=== PATIENT | male | born 1965 | race Caucasian/White ===

== ENCOUNTER 2019-01-04 09:33 | Emergency (ER) | payer OTHER ==
[~2019-01-04] VITALS: Ht 182.9 cm; Wt 68.0 kg
[~2019-01-04 09:33] MED LIST: IBUP800 PO; OMEP20ER PO
== END 2019-01-04 10:44 | disposition home or self-care (01) ==
LOC: ER 09:33
DX: H11.32 Conjunctival hemorrhage, left eye (principal); F17.200 Nicotine dependence, unspecified, uncomplicated
CPT/HCPCS: 99282

== ENCOUNTER → 2020-09-15 | Outpatient (CLI) | payer OTHER | END | disposition home or self-care (01) | LOC: LAB 09:43 → LAB SHORT 09:43 | DX: R13.19 Other dysphagia (principal) | CPT/HCPCS: 87338 ==

== ENCOUNTER 2022-10-01 11:41 | Emergency (ER) | payer OTHER ==
[~2022-10-01] VITALS: Ht 182.9 cm; Wt 72.6 kg
[2022-10-01] MEDS ORDERED: Ventolin/Prove6.7 GM INH (12:31)
[2022-10-01 13:24] LABS: BASOPHILS ABSOLUTE AUTO 0.09 K/mm3 (0.00-0.23); BASOPHILS PERCENT AUTO 1 % (0-2); EOSINOPHILS ABSOLUTE AUTO 0.13 K/mm3 (0.00-0.68); EOSINOPHILS PERCENT AUTO 1 % (0-6); Hematocrit 44.8 % (37.0-53.0); Hemoglobin 15.7 g/dL (13.5-17.5); IMMATURE GRAN ABSOLUTE AUTO 0.03 K/mm3 (0.00-0.10); IMMATURE GRAN PERCENT AUTO 0 % (0-1); LYMPHOCYTES ABSOLUTE AUTO 4.11 K/mm3 (0.84-5.20); LYMPHOCYTES PERCENT AUTO 32 % (21-46); MONOCYTES ABSOLUTE AUTO 1.13 K/mm3 (0.16-1.47); MONOCYTES PERCENT AUTO 9 % (4-13); Mean Corpuscular HGB 30.6 pg (26.0-34.0); Mean Corpuscular Volume 87 fL (80-100); Mean Platelet Volume 9.4 fL (9.1-12.4); NEUTROPHILS ABSOLUTE AUTO 7.25 K/mm3 (1.96-9.15); NEUTROPHILS PERCENT AUTO 57 % (41-73); Platelet Count 315 K/mm3 (150-400); RDW Coefficient Variation 13.4 % (11.7-14.2); RDW Standard Deviation 43.3 fL (35.1-46.3); Red Blood Cell Count 5.13 M/mm3 (4.30-5.90); White Blood Cell Count 12.74 K/mm3 (4.00-11.30)
[2022-10-01 13:43] LABS: Albumin, Blood 4.1 g/dL (3.4-5.0); Albumin/Globulin Ratio 1.2 (0.8-1.8); Bilirubin, Total 0.6 mg/dL (0.1-1.0); Bun/Creatinine Ratio 12.6 (12.0-20.0); Calcium, Blood 8.9 mg/dL (8.5-10.1); Creatinine, Blood 0.8 mg/dL (0.60-1.20); Globulin, Blood 3.4 g/dL (2.2-4.0); Potassium, Blood 3.9 mmol/L (3.5-5.5); Total Protein, Blood 7.5 g/dL (6.4-8.2)
== END 2022-10-01 15:36 | disposition home or self-care (01) ==
LOC: ER 11:41
PROVIDERS: Student in an Organized Health Care Education/Training Program
DX: R22.1 Localized swelling, mass and lump, neck (principal); F17.200 Nicotine dependence, unspecified, uncomplicated
CPT/HCPCS: 70491; 80053; 85025; 99284-25; Q9967

== ENCOUNTER → 2022-12-15 | Outpatient (CLI) | payer OTHER ==
[~2022-12-15] MED LIST changes: +Ventolin/Prove6.7 GM INH
[2022-12-15 19:01] LABS: BASOPHILS ABSOLUTE AUTO 0.07 K/mm3 (0.00-0.23); BASOPHILS PERCENT AUTO 1 % (0-2); EOSINOPHILS ABSOLUTE AUTO 0.23 K/mm3 (0.00-0.68); EOSINOPHILS PERCENT AUTO 3 % (0-6); Hemoglobin 15.5 g/dL (13.5-17.5); IMMATURE GRAN ABSOLUTE AUTO 0.01 K/mm3 (0.00-0.10); IMMATURE GRAN PERCENT AUTO 0 % (0-1); LYMPHOCYTES ABSOLUTE AUTO 3.33 K/mm3 (0.84-5.20); LYMPHOCYTES PERCENT AUTO 39 % (21-46); MONOCYTES ABSOLUTE AUTO 0.86 K/mm3 (0.16-1.47); MONOCYTES PERCENT AUTO 10 % (4-13); Mean Corpuscular HGB 30.5 pg (26.0-34.0); Mean Corpuscular HGB Conc 34.4 g/dL (31.5-36.5); Mean Corpuscular Volume 89 fL (80-100); Mean Platelet Volume 10.7 fL (9.1-12.4); NEUTROPHILS ABSOLUTE AUTO 3.99 K/mm3 (1.96-9.15); NEUTROPHILS PERCENT AUTO 47 % (41-73); Platelet Count 305 K/mm3 (150-400); RDW Coefficient Variation 12.6 % (11.7-14.2); RDW Standard Deviation 41.2 fL (35.1-46.3); Red Blood Cell Count 5.08 M/mm3 (4.30-5.90); White Blood Cell Count 8.49 K/mm3 (4.00-11.30)
[2022-12-15 19:02] LABS: Free Thyroxine 1.03 ng/dL (0.70-1.60)
[2022-12-15 19:07] LABS: Thyroid Stimulating Hormone 1.41 uIU/mL (0.360-4.800); Triiodothyronine, Free 3.06 pg/mL (2.18-3.98)
[2022-12-16 08:09] LABS: THYROID PEROXIDASE (TPO) AB 13 IU/mL (0-34)
[2022-12-19 17:11] LABS: THYROGLOBULIN ANTIBODY <1.0 IU/mL (0.0-0.9)
== END | disposition home or self-care (01) ==
LOC: LAB SHORT 17:33
PROVIDERS: Nurse Practitioner Family
DX: L65.9 Nonscarring hair loss, unspecified (principal); D72.829 Elevated white blood cell count, unspecified; R53.83 Other fatigue; R73.01 Impaired fasting glucose; R94.6 Abnormal results of thyroid function studies
CPT/HCPCS: 83036; 83520; 84439; 84443; 84481; 85025; 86376; 86800

== ENCOUNTER 2023-01-24 08:22 | Day surgery (SDC) | payer OTHER ==
[2023-01-24] VITALS (11 sets, daily range): BP systolic 114–153; BP diastolic 68–115
[~2023-01-24] VITALS: Ht 182.9 cm; Wt 67.7 kg
[~2023-01-24 08:22] MED LIST changes: +MULVITA PO
--- NOTE | 2023-01-24 13:17 | NUR ---
DISCHARGE NOTE PT A&OX4, VSS, BREATHING RA, NO CONCERNS. Dressing to procedure site clean, dry, intact with no visible drainage, swelling, erythema or bruising noted.SMALL PEA SIZED AMOUNT OF BLOODY DRAINAGE VISIBLE BELOW GAUZE, REMAINS UNCHAGED SINCE STEP DOWN UNIT. Discharge instructions reviewed with patient. Patient verbalizes understanding. Copy given to patient to take home. Discharged via wheelchair to private car for ride home.
== END 2023-01-24 13:15 | disposition home or self-care (01) ==
LOC: ORSCMMR 08:22 → ORD 09:45 → ORSCMMR 09:45
PROVIDERS: Surgery
PROC: 0YU60JZ Supplement Left Inguinal Region with Synthetic Substitute, Open Approach (ICD-10-PCS; principal; 2023-01-24 09:45)
PROC: 3E0M05Z Introduction of Adhesion Barrier into Peritoneal Cavity, Open Approach (ICD-10-PCS; principal; 2023-01-24 09:45)
DX: K40.90 Unilateral inguinal hernia, without obstruction or gangrene, not specified as recurrent (principal); Z87.891 Personal history of nicotine dependence
CPT/HCPCS: C1781; J0690; J1100; J1885; J2250; J2405; J2704; J3010; J7120

== ENCOUNTER → 2023-05-17 | Outpatient (CLI) | payer OTHER ==
[2023-05-17 14:46] LABS: BASOPHILS ABSOLUTE AUTO 0.06 K/mm3 (0.00-0.23); BASOPHILS PERCENT AUTO 1 % (0-2); EOSINOPHILS ABSOLUTE AUTO 0.14 K/mm3 (0.00-0.68); EOSINOPHILS PERCENT AUTO 1 % (0-6); Hematocrit 48.6 % (37.0-53.0); Hemoglobin 16.6 g/dL (13.5-17.5); IMMATURE GRAN ABSOLUTE AUTO 0.04 K/mm3 (0.00-0.10); IMMATURE GRAN PERCENT AUTO 0 % (0-1); LYMPHOCYTES ABSOLUTE AUTO 3.87 K/mm3 (0.84-5.20); LYMPHOCYTES PERCENT AUTO 32 % (21-46); MONOCYTES ABSOLUTE AUTO 0.94 K/mm3 (0.16-1.47); MONOCYTES PERCENT AUTO 8 % (4-13); Mean Corpuscular HGB 30.9 pg (26.0-34.0); Mean Corpuscular HGB Conc 34.2 g/dL (31.5-36.5); Mean Corpuscular Volume 91 fL (80-100); Mean Platelet Volume 9.9 fL (9.1-12.4); NEUTROPHILS ABSOLUTE AUTO 7.09 K/mm3 (1.96-9.15); NEUTROPHILS PERCENT AUTO 58 % (41-73); Platelet Count 361 K/mm3 (150-400); RDW Standard Deviation 43.2 fL (35.1-46.3); Red Blood Cell Count 5.37 M/mm3 (4.30-5.90); White Blood Cell Count 12.14 K/mm3 (4.00-11.30)
[2023-05-17 15:06] LABS: Alanine Aminotransfer (ALT/SGP 30 U/L (12-78); Albumin, Blood 4.4 g/dL (3.4-5.0); Albumin/Globulin Ratio 1.4 (0.8-1.8); Alk Phos 66 U/L (50-136); Anion Gap 2 mmol/L (6-16); Aspartate Aminotrans (AST/SGOT 18 U/L (12-37); Bilirubin, Total 0.6 mg/dL (0.1-1.0); Blood Urea Nitrogen 13 mg/dL (8-24); Bun/Creatinine Ratio 14.7 (12.0-20.0); C-REACTIVE PROTEIN, EXT RANGE <0.290 mg/dL (0.000-0.300); CO2, Blood 30 mmol/L (21-32); Calcium, Blood 9.7 mg/dL (8.5-10.1); Chloride, Blood 106 mmol/L (98-108); Creatinine, Blood 0.89 mg/dL (0.60-1.20); Globulin, Blood 3.2 g/dL (2.2-4.0); Glomerular Filtration Rate 98 (60-); Glucose, Blood 110 mg/dL (70-99); Potassium, Blood 3.9 mmol/L (3.5-5.5); Sodium, Blood 138 mmol/L (136-145); Total Protein, Blood 7.6 g/dL (6.4-8.2)
== END | disposition home or self-care (01) ==
LOC: LAB SHORT 10:08 → LAB 10:08
PROVIDERS: Family Medicine Adult Medicine
DX: K11.20 Sialoadenitis, unspecified (principal)
CPT/HCPCS: 80053; 84443; 85025; 85651; 86140

== ENCOUNTER 2024-12-03 10:15 | Emergency (ER) | payer OTHER ==
[~2024-12-03] VITALS: Ht 182.9 cm; Wt 69.7 kg
[2024-12-03] MEDS ORDERED: Ipratropium/Albuterol SulF 2.5-0.5MG/3 ML Amp INH ONE (10:30)
[2024-12-03] MEDS ORDERED: PredniSONE 20 MG Tab PO ONE (10:30)
[2024-12-03] MEDS ORDERED: Albuterol 2.5 MG/3 ML VIAL INH ONE (11:35)
[2024-12-03] MEDS ORDERED: BUDESONIDE-FO10.2 G2 INH (12:59)
[2024-12-03] MEDS ORDERED: Prednisone20 MG PO (12:59)
[2024-12-03 13:01] VITALS: BP 145/84
== END 2024-12-03 13:02 | disposition home or self-care (01) ==
LOC: ER 10:15
DX: J44.89 Other specified chronic obstructive pulmonary disease (principal); Z87.891 Personal history of nicotine dependence; Z88.1 Allergy status to other antibiotic agents; Z79.899 Other long term (current) drug therapy
CPT/HCPCS: 71046; 93005; 93010; 94640; 94664; 99285-25; J7512